=== PATIENT | female | born 1990 | race Caucasian/White ===

== ENCOUNTER 2017-02-25 03:14 | Emergency (ER) | payer OTHER ==
[2017-02-25 03:15] VITALS: BP 127/79; PULSE 93; RESP 18; TEMP 98.6; O2SAT 98
[2017-02-25] MEDS ORDERED: SODIUM CHLOR 0.9% 1000 ML INJ 1,000 ML IV ONE (03:30)
[2017-02-25] MEDS ORDERED: DIPHTH/TETANUS/ACEL PERTUSSIS (BOOSTER) 0.5 ML VIAL/PFS IM ONE (03:30)
[2017-02-25 03:37] VITALS: PULSE 93; RESP 16; O2SAT 98
[2017-02-25 03:54] LABS: AUTOMATED NEUTROPHIL # 9.2 TH/MM3 (1.8-7.7); BASOPHIL % 0.4 % (0.0-2.0); EOSINOPHIL # 0.1 TH/MM3 (0-0.4); EOSINOPHIL % 1.1 % (0.0-4.0); HEMATOCRIT 34.5 % (35.0-46.0); HEMO FLAGS DIFF FINAL; LYMPH % 15.6 % (9.0-44.0); LYMPHOCYTE # 1.8 TH/MM3 (1.0-4.8); MEAN CELL VOLUME 86.1 FL (80.0-100.0); MEAN CORPUSCULAR HEMOGLOBIN 28.5 PG (27.0-34.0); MEAN CORPUSCULAR HGB CONC 33.1 % (32.0-36.0); MONO % 5.1 % (0.0-8.0); NEUT % 77.8 % (16.0-70.0); PLATELET COUNT 234 TH/MM3 (150-450); RED CELL DISTRIBUTION WIDTH 12.5 % (11.6-17.2); WHITE BLOOD COUNT 11.8 TH/MM3 (4.0-11.0)
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
[2017-02-25 04:07] LABS: APTT (PATIENT) 34.3 SEC (24.3-30.1); INTERNATIONAL NORMALIZED RATIO 1.1 RATIO; PROTHROMBIN TIME - PATIENT 12.1 SEC (9.8-11.6)
[2017-02-25 04:09] LABS: ALT (GPT) 18 U/L (10-53); ANION GAP 9 MEQ/L (5-15); AST (GOT) 22 U/L (15-37); BICARBONATE 22.9 MEQ/L (21.0-32.0); BLOOD UREA NITROGEN 12 MG/DL (7-18); CHLORIDE 110 MEQ/L (98-107); GLOMERULAR FILTRATION RATE 130 ML/MIN (>89); POTASSIUM 3.2 MEQ/L (3.5-5.1); SODIUM (NA) 142 MEQ/L (136-145)
--- NOTE | 2017-02-25 04:11 | PD ---
HPI Chief Complaint: Injury Time Seen by Provider: 03:22 Travel History International Travel<30 days: No Contact w/Intl Traveler<30days: No Traveled to known affect area: No PFSH Past Medical History Asthma: Yes Immunizations Current: No ?: Not Past Surgical History Section: Yes Social History Alcohol Use: No Tobacco Use: No Substance Use: No Allergies-Medications (Allergen,Severity, Reaction): Coded Allergies: Penicillin (Verified Allergy, Unknown, 02/25/17) Reported Meds & Prescriptions Reported Meds & Active Scripts Active No Active Prescriptions or Reported Medications Data Data Last Documented VS Vital Signs Date Time Temp Pulse Resp B/P Pulse Ox O2 Delivery O2 Flow Rate FiO2 02/25/17 03:37 93 16 98 Room Air 02/25/17 03:15 98.6 127/[address] Brain W/O Iv Contrast(Rout) (02/25/17 03:23) Ct Cerv Spine W/O Contrast (02/25/17 03:23) Complete Blood Count With Diff (02/25/17 03:23) Comprehensive Metabolic Panel (02/25/17 03:23) Prothrombin Time / Inr (Pt) (02/25/17 03:23) Act Partial Throm Time (Ptt) (02/25/17 03:23) Lipase (02/25/17 03:23) Urinalysis - C+S If Indicated (02/25/17 03:23) Chest, Pa & Lat (02/25/17 03:23) Iv Access Insert/Monitor (02/25/17 03:23) Ecg Monitoring (02/25/17 03:23) Oximetry (02/25/17 03:23) Ed Urine Pregnancytest Poc (02/25/17 03:23) Shgt-Xiv-Styftq (Booster) Inj (Boostrix (02/25/17 03:30) Sodium Chlor 0.9% 1000 Ml Inj (Ns 1000 M (02/25/17 03:30) Shoulder, Complete (>2vws) (02/25/17 03:23) Ice/Cold Pack (02/25/17 03:23) Labs Laboratory Tests Test 02/25/17 03:30 White Blood Count 11.8 TH/MM3 Red Blood Count 4.00 MIL/MM3 Hemoglobin 11.4 GM/DL Hematocrit 34.5 % Mean Corpuscular Volume 86.1 FL Mean Corpuscular Hemoglobin 28.5 PG Mean Corpuscular Hemoglobin 33.1 % Concent Red Cell Distribution Width 12.5 % Platelet Count 234 TH/MM3 Mean Platelet Volume 8.4 FL Neutrophils (%) (Auto) 77.8 % Lymphocytes (%) (Auto) 15.6 % Monocytes (%) (Auto) 5.1 % Eosinophils (%) (Auto) 1.1 % Basophils (%) (Auto) 0.4 % Neutrophils # (Auto) 9.2 TH/MM3 Lymphocytes # (Auto) 1.8 TH/MM3 Monocytes # (Auto) 0.6 TH/MM3 Eosinophils # (Auto) 0.1 TH/MM3 Basophils # (Auto) 0.0 TH/MM3 CBC Comment DIFF FINAL Differential Comment Prothrombin Time 12.1 SEC Prothromb Time International 1.1 RATIO Ratio Activated Partial 34.3 SEC Thromboplast Time Sodium Level 142 MEQ/L Potassium Level 3.2 MEQ/L Chloride Level 110 MEQ/L Carbon Dioxide Level 22.9 MEQ/L Anion Gap 9 MEQ/L Blood Urea Nitrogen 12 MG/DL Creatinine 0.57 MG/DL Estimat Glomerular Filtration 130 ML/MIN Rate Random Glucose 107 MG/DL Calcium Level 7.9 MG/DL Total Bilirubin 0.5 MG/DL Aspartate Amino Transf 22 U/L (AST/SGOT) Alanine Aminotransferase 18 U/L (ALT/SGPT) Alkaline Phosphatase 80 U/L Total Protein 7.2 GM/DL Albumin 3.6 GM/DL Lipase 118 U/L MDM Medical Decision Making Narrative Course During the course of the patients emergency department visit, the patients history, examination, and differential diagnosis were reviewed with the patient. The patient had IV access obtained and blood work sent for analysis. The patient was placed on a playground monitor with oximetry and blood pressure monitoring. A chest x-ray was ordered, left shoulder x-ray was ordered. CT scan of the head and neck was ordered. The patient was initially provided an update of her tetanus, normal saline 1 L IV fluid bolus. The patients laboratory studies were reviewed and remarkable for white count of 11.8, hemoglobin 11.4, platelets 234 with neutrophils 77.8, Radiology studies were reviewed and remarkable for a left shoulder x-ray that shows no acute abnormality. A chest x-ray shows no acute abnormality. The patient is resting comfortably and feels better, is alert and in no distress. The patients results and examination findings were discussed with the patient. The repeat examination is unremarkable and benign. The history, exam, diagnostic testing, and current condition do not suggest any significant pathology to warrant further testing, continued ED treatment, admission, or surgical evaluation at this point. The vital signs have been stable. The patient does not have uncontrollable pain, intractable vomiting, or other significant symptoms. The patient's condition is stable and appropriate for discharge. The patient will pursue further outpatient evaluation with a primary care physician or other designated or consulting physician as indicated in the discharge instructions. The patient expressed understanding and was agreeable with this plan. Scripts No Active Prescriptions or Reported Meds Kayleigh Gonzalez MD February 25, 2017 04:11
[2017-02-25 04:12] LABS: ALKALINE PHOSPHATASE 80 U/L (45-117); TOTAL BILIRUBIN ADULT 0.5 MG/DL (0.2-1.0)
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
[2017-02-25] MEDS ORDERED: NAPR1TAB34 PO (05:34)
[2017-02-25] MEDS ORDERED: CYCL5TAB PO (05:34)
[2017-02-25] MEDS ORDERED: POTASSIUM CHLORIDE 20 MEQ CONTROLLED RELEASE TAB PO ONE (05:45)
[2017-02-25] MEDS ORDERED: ACETAMINOPHEN/HYDROcodone 325 MG/5 MG TAB PO ONE (05:45)
[2017-02-25 06:50] VITALS: BP 109/64; PULSE 83; RESP 16; O2SAT 100
== END 2017-02-25 07:48 | disposition home or self-care (01) ==
LOC: NEPC 03:14
DX: M25.512 Pain in left shoulder (principal); S09.90XA Unspecified injury of head, initial encounter; M54.2 Cervicalgia; Z23 Encounter for immunization; Z86.2 Personal history of diseases of the blood and blood-forming organs and certain disorders involving the immune mechanism; Z87.09 Personal history of other diseases of the respiratory system; Y04.8XXA Assault by other bodily force, initial encounter
CPT/HCPCS: 70450; 71020; 72125; 73030; 80053; 83690; 85025; 85610; 85730; 90471; 90715; 96360; 99284; J7030

== ENCOUNTER 2017-04-02 08:39 | Emergency (ER) | payer MEDICAID ==
[~2017-04-02] VITALS: Ht 154.9 cm; Wt 53.6 kg
[~2017-04-02 08:39] MED LIST: CYCL5TAB PO; NAPR1TAB34 PO
[2017-04-02 08:45] VITALS: BP 98/57; PULSE 68; RESP 16; TEMP 98.3; O2SAT 100
[2017-04-02] MEDS ORDERED: ONDANSETRON ODT 4 MG TAB PO ONE (09:00)
--- NOTE | 2017-04-02 09:02 | PD ---
HPI Chief Complaint: GI Complaint Time Seen by Provider: 08:49 Travel History International Travel<30 days: No Contact w/Intl Traveler<30days: No Traveled to known affect area: No History of Present Illness HPI This 27-year-old female says she's been vomiting since last night. He says there is no chance of . She says that last night she woke up around 2: 00 and vomited 3 times. She morning she has vomited twice. Diarrhea. His stomach is not hurting. She does have a history of anxiety and anxiety related chest pain. She has not had chest pain today PFSH Past Medical History Hx Anticoagulant Therapy: No Asthma: Yes Diabetes: No Immunizations Current: No Tetanus Vaccination: < 5 Years Influenza Vaccination: No ?: Not LMP: 1 week ago Past Surgical History Section: Yes Tympanostomy Tube: Yes Social History Alcohol Use: No Tobacco Use: No Substance Use: No Allergies-Medications (Allergen,Severity, Reaction): Coded Allergies: Penicillin (Verified Allergy, Severe, Throat swelling , 04/02/17) Reported Meds & Prescriptions Reported Meds & Active Scripts Active Zofran Odt (Ondansetron Odt) 4 Mg Tab 4 Mg SL Q6HR PRN Review of Systems General / Constitutional: Positive: Chills, No: Fever Eyes: No: Diploplia, Blurred Vision HENT: No: Headaches Cardiovascular: No: Chest Pain or Discomfort, Palpitations Respiratory: No: Cough, Shortness of Breath Gastrointestinal: Positive: Nausea, Vomiting, No: Diarrhea, Abdominal Pain Genitourinary: No: Frequency Musculoskeletal: No: Myalgias, Arthralgias Skin: No Rash, No Itching Neurologic: No: Weakness Endocrine: No: Heat Intolerance, Cold Intolerance Hematologic/Lymphatic: No: Easy Bruising Physical Exam Narrative GENERAL: Well-developed female SKIN: Focused skin assessment warm/dry. HEAD: Atraumatic. Normocephalic. EYES: Pupils equal and round. No scleral icterus. No injection or drainage. ENT: No nasal bleeding or discharge. Mucous membranes pink and moist. NECK: Trachea midline. No JVD. CARDIOVASCULAR: Regular rate and rhythm. No murmur appreciated. RESPIRATORY: No accessory muscle use. Clear to auscultation. Breath sounds equal bilaterally. GASTROINTESTINAL: Abdomen soft, non-tender, nondistended. Hepatic and splenic margins not palpable. MUSCULOSKELETAL: No obvious deformities. No clubbing. No cyanosis. No edema. NEUROLOGICAL: Awake and alert. No obvious cranial nerve deficits. Motor grossly within normal limits. Normal speech. PSYCHIATRIC: Appropriate mood and affect; insight and judgment normal. Data Data Last Documented VS Vital Signs Date Time Temp Pulse Resp B/P Pulse Ox O2 Delivery O2 Flow Rate FiO2 04/02/17 08:45 98.3 68 16 98/57 100 Orders Ondansetron Odt (Zofran Odt) (04/02/17 09:00) [facility] Medical Decision Making Medical Screen Exam Complete: Yes Emergency Medical Condition: Yes Medical Record Reviewed: Yes Differential Diagnosis Differential includes viral illness, gastroenteritis, dehydration Narrative Course Patient was given oral Zofran. After this she was able to tolerate a fluid challenge. She'll be released with prescription for Zofran. This is most likely viral gastritis Diagnosis Primary Impression: Acute gastritis Qualified Code: K29.00 - Acute gastritis without hemorrhage, unspecified gastritis type Scripts Ondansetron Odt (Zofran Odt)4 Mg Tab4 Mg SL Q6HR PRN (Nausea/Vomiting) #10 TAB Ref 0 Prov:Srikanth Manuel MD 04/02/17 Disposition: 01 DISCHARGE HOME Condition: Stable Srikanth Manuel MD Apr 02, 2017 09:02
[2017-04-02] MEDS ORDERED: ZOFR4TAB3 SL (09:38)
[2017-04-02 10:20] VITALS: BP 99/74; PULSE 73; RESP 16; O2SAT 98
== END 2017-04-02 10:20 | disposition home or self-care (01) ==
LOC: PHED 08:39
DX: K29.00 Acute gastritis without bleeding (principal); Z88.0 Allergy status to penicillin
CPT/HCPCS: 99283

== ENCOUNTER 2017-05-28 19:59 | Emergency (ER) | payer MEDICAID ==
[2017-05-28] VITALS (7 sets, daily range): BP systolic 95–107; BP diastolic 57–69; PULSE 103–120; RESP 16–18; TEMP 98.9–99.5; O2SAT 96–98
[~2017-05-28] VITALS: Ht 180.3 cm; Wt 51.6 kg
[~2017-05-28 19:59] MED LIST changes: -CYCL5TAB PO; -NAPR1TAB34 PO; +ZOFR4TAB3 SL
[2017-05-28] MEDS ORDERED: SODIUM CHLOR 0.9% 1000 ML INJ 1,000 ML IV SCH (20:28)
[2017-05-28] MEDS ORDERED: ONDANSETRON HCL 4 MG/2 ML VIAL IVP ONE (20:30)
[2017-05-28] MEDS ORDERED: KETOROLAC TROMETHAMINE 30 MG/ML (IVP) VIAL IVP ONE (20:30)
[2017-05-28] MEDS ORDERED: SODIUM CHLORIDE 0.9% FLUSH 10 ML FLUSH IV FLUSH PRN (20:30)
[2017-05-28] MEDS ORDERED: PAXI10TA2 PO (20:35)
[2017-05-28 20:51] LABS: GLUCOSE,URINE NEG (NEG); KETONE, URINE NEG (NEG); PH, URINE 7.5 (5.0-8.5)
--- NOTE | 2017-05-28 20:51 | PD ---
HPI Chief Complaint: Cold / Flu Symptoms Time Seen by Provider: 20:23 Travel History International Travel<30 days: No Contact w/Intl Traveler<30days: No Traveled to known affect area: No History of Present Illness HPI Patient is a 27-year-old female presents emergency Department with bodyaches chills and subjective fever for the past 2 days. Patient states it hurts particularly on the right side of her back. Denies any dysuria denies any vaginal bleeding vaginal discharge. States she's had some mild nausea without any specific abdominal pain. No chest pain or cough. His symptoms began gradually worsening moderate severity. No radiation of her pain. PFSH Past Medical History Hx Anticoagulant Therapy: No ADD: Yes Asthma: Yes Bipolar Disorder: Yes Anxiety: Yes Depression: Yes Diabetes: No Diminished Hearing: No Immunizations Current: No Tetanus Vaccination: < 5 Years Influenza Vaccination: No ?: Not LMP: Three weeks ago Past Surgical History Section: Yes Tympanostomy Tube: Yes Social History Alcohol Use: No Tobacco Use: No Substance Use: No Allergies-Medications (Allergen,Severity, Reaction): Coded Allergies: Penicillin (Verified Allergy, Severe, Throat swelling , 05/28/17) Reported Meds & Prescriptions Reported Meds & Active Scripts Active Zofran Odt (Ondansetron Odt) 4 Mg Tab 4 Mg SL Q6HR PRN Keflex (Cephalexin) 500 Mg Cap 500 Mg PO Q6H 10 Days Reported Paxil (Paroxetine HCl) 10 Mg Tab 10 Mg PO DAILY Review of Systems Except as stated in HPI: all other systems reviewed are Neg Physical Exam Narrative GENERAL: Well-developed, well-nourished, appears uncomfortable but nontoxic. SKIN: Focused skin assessment warm/dry. HEAD: Atraumatic. Normocephalic. EYES: Pupils equal and round. No scleral icterus. No injection or drainage. ENT: No nasal bleeding or discharge. Mucous membranes pink and moist. NECK: Trachea midline. No JVD. CARDIOVASCULAR: Regular rate and rhythm. No murmur appreciated. RESPIRATORY: No accessory muscle use. Clear to auscultation. Breath sounds equal bilaterally. GASTROINTESTINAL: Abdomen soft, non-tender, nondistended. Hepatic and splenic margins not palpable. Moderate right-sided CVA tenderness. No rebound no percussive tenderness. MUSCULOSKELETAL: No obvious deformities. No clubbing. No cyanosis. No edema. NEUROLOGICAL: Awake and alert. No obvious cranial nerve deficits. Motor grossly within normal limits. Normal speech. PSYCHIATRIC: Appropriate mood and affect; insight and judgment normal. Data Data Last Documented VS Vital Signs Date Time Temp Pulse Resp B/P Pulse Ox O2 Delivery O2 Flow Rate FiO2 05/28/17 23:00 99.4 103 18 97/61 98 Room Air Orders Complete Blood Count With Diff (05/28/17 20:28) Comprehensive Metabolic Panel (05/28/17 20:28) Lipase (05/28/17 20:28) Urinalysis - C+S If Indicated (05/28/17 20:28) Iv Access Insert/Monitor (05/28/17 20:28) Ecg Monitoring (05/28/17 20:28) Oximetry (05/28/17 20:28) Ondansetron Inj (Zofran Inj) (05/28/17 20:30) Sodium Chlor 0.9% 1000 Ml Inj (Ns 1000 M (05/28/17 20:28) Sodium Chloride 0.9% Flush (Ns Flush) (05/28/17 20:30) Ketorolac Inj (Toradol Inj) (05/28/17 20:30) Ed Urine Pregnancytest Poc (05/28/17 20:28) Urine Culture (05/28/17 20:35) Lactic Acid (05/28/17 21:03) Sodium Chlor 0.9% 1000 Ml Inj (Ns 1000 M (05/28/17 21:15) Blood Culture (05/28/17 21:03) Ciprofloxacin 400 Mg Premix (Cipro 400 M (05/28/17 21:15) Labs Laboratory Tests Test 05/28/17 05/28/17 05/28/17 20:35 20:45 21:15 Urine Color YELLOW Urine Turbidity CLOUDY Urine pH 7.5 Urine Specific [place] 1.012 Urine Protein 100 mg/dL Urine Glucose (UA) NEG mg/dL Urine Ketones NEG mg/dL Urine Occult Blood MOD Urine Nitrite POS Urine Bilirubin NEG Urine Leukocyte Esterase LARGE Urine RBC 5-10 /hpf Urine WBC 100-200 /hpf Urine Squamous Epithelial 6-8 /hpf Cells Urine Bacteria MANY /hpf Microscopic Urinalysis Comment CULTURE INDICATED White Blood Count 12.9 TH/MM3 Red Blood Count 4.29 MIL/MM3 Hemoglobin 12.5 GM/DL Hematocrit 37.1 % Mean Corpuscular Volume 86.6 FL Mean Corpuscular Hemoglobin 29.2 PG Mean Corpuscular Hemoglobin 33.7 % Concent Red Cell Distribution Width 12.3 % Platelet Count 263 TH/MM3 Mean Platelet Volume 7.9 FL Neutrophils (%) (Auto) 89.0 % Lymphocytes (%) (Auto) 4.7 % Monocytes (%) (Auto) 5.6 % Eosinophils (%) (Auto) 0.0 % Basophils (%) (Auto) 0.7 % Neutrophils # (Auto) 11.5 TH/MM3 Lymphocytes # (Auto) 0.6 TH/MM3 Monocytes # (Auto) 0.7 TH/MM3 Eosinophils # (Auto) 0.0 TH/MM3 Basophils # (Auto) 0.1 TH/MM3 CBC Comment DIFF FINAL Differential Comment Sodium Level 137 MEQ/L Potassium Level 3.6 MEQ/L Chloride Level 105 MEQ/L Carbon Dioxide Level 24.7 MEQ/L Anion Gap 7 MEQ/L Blood Urea Nitrogen 9 MG/DL Creatinine 0.76 MG/DL Estimat Glomerular Filtration 93 ML/MIN Rate Random Glucose 114 MG/DL Calcium Level 8.7 MG/DL Total Bilirubin 0.7 MG/DL Aspartate Amino Transf 14 U/L (AST/SGOT) Alanine Aminotransferase 16 U/L (ALT/SGPT) Alkaline Phosphatase 81 U/L Total Protein 8.0 GM/DL Albumin 3.7 GM/DL Lipase 124 U/L Lactic Acid Level 1.0 mmol/L MDM Medical Decision Making Medical Screen Exam Complete: Yes Emergency Medical Condition: Yes Differential Diagnosis Pyelonephritis, sepsis, UTI, influenza, dehydration. Narrative Course Patient roomed in the emergency department, initially appearing somewhat uncomfortable she was given pain medicine and nausea medicine in 2 L normal saline. Initial lactic is 1. She does have a minimal elevation of white blood cell count to just over 12,000. Mildly tachycardic. This does technically meet Sirs criteria. The patient was given Rocephin IV after blood cultures were drawn. Her UA does show nitrite positive and leukocyte esterase positive urine confirming the diagnosis of pyelonephritis. After 2 L of fluid the patient is feeling much better. I discussed the concerns with her that her white blood cell count is significantly elevated, her tachycardia is mostly resolved and is 90-100 at time of discharge. She is both stating that she feels much better and she appears to have improved in the emergency department as well. Asked again with her the concerns over technical sepsis diagnosis and she should consider admission to the hospital. At this time the patient would like to go home and take her antibiotics and return to ED if not feeling better. I think this is a reasonable course of action given her clinical improvement in the emergency department. Discussed strict return to ED criteria including fever worsening abdominal pain inability to tolerate by mouth medications and feeling poorly. She verbalized understanding and agreement. Diagnosis Primary Impression: Pyelonephritis Med/Other Pt SpecificInfo: Prescription(s) given Scripts Ondansetron Odt (Zofran Odt)4 Mg Tab4 Mg SL Q6HR PRN (Nausea/Vomiting) #20 TAB Ref 0 Prov:Chang Zarco MD 05/28/17 Cephalexin (Keflex)500 Mg [id number] Mg PO Q6H 10 Days Ref 0 Prov:Chang Zarco MD 05/28/17 Disposition: 01 DISCHARGE HOME Condition: Stable Chang Zarco MD May 28, 2017 20:51
[2017-05-28 20:53] LABS: AUTOMATED NEUTROPHIL # 11.5 TH/MM3 (1.8-7.7); BASOPHIL # 0.1 TH/MM3 (0-0.2); BASOPHIL % 0.7 % (0.0-2.0); HEMATOCRIT 37.1 % (35.0-46.0); HEMO FLAGS DIFF FINAL; LYMPH % 4.7 % (9.0-44.0); LYMPHOCYTE # 0.6 TH/MM3 (1.0-4.8); MEAN CELL VOLUME 86.6 FL (80.0-100.0); MEAN CORPUSCULAR HEMOGLOBIN 29.2 PG (27.0-34.0); MEAN CORPUSCULAR HGB CONC 33.7 % (32.0-36.0); MONO % 5.6 % (0.0-8.0); PLATELET COUNT 263 TH/MM3 (150-450); RED BLOOD COUNT 4.29 MIL/MM3 (4.00-5.30); RED CELL DISTRIBUTION WIDTH 12.3 % (11.6-17.2); WHITE BLOOD COUNT 12.9 TH/MM3 (4.0-11.0)
[2017-05-28 20:57] LABS: BLOOD, URINE MOD (NEG); NITRITE,URINE POS (NEG); URINE COLOR YELLOW (YELLW/STRAW)
[2017-05-28 20:58] LABS: BACTERIA, URINE MANY /hpf; COMMENT (UR) CULTURE INDICATED; CULTURE IF INDICATED CULTURE INDICATED; WBC, URINE 100-200 /hpf (0-5)
[2017-05-28 21:01] LABS: CHLORIDE 105 MEQ/L (98-107); POTASSIUM 3.6 MEQ/L (3.5-5.1); SODIUM (NA) 137 MEQ/L (136-145)
[2017-05-28 21:05] LABS: ANION GAP 7 MEQ/L (5-15); BICARBONATE 24.7 MEQ/L (21.0-32.0); BLOOD UREA NITROGEN 9 MG/DL (7-18)
[2017-05-28 21:08] LABS: ALT (GPT) 16 U/L (10-53); AST (GOT) 14 U/L (15-37); GLOMERULAR FILTRATION RATE 93 ML/MIN (>89)
[2017-05-28 21:09] LABS: TOTAL BILIRUBIN ADULT 0.7 MG/DL (0.2-1.0)
[2017-05-28 21:11] LABS: ALKALINE PHOSPHATASE 81 U/L (45-117)
[2017-05-28] MEDS ORDERED: CIPROFLOXACIN 400 MG PREMIX 200 ML IV ONE (21:15)
[2017-05-28] MEDS ORDERED: SODIUM CHLOR 0.9% 1000 ML INJ 1,000 ML IV ONE (21:15)
[2017-05-28] MEDS ORDERED: CEPH-460 PO (23:06)
[2017-05-28] MEDS ORDERED: ZOFR4TAB3 SL (23:06)
== END 2017-05-28 23:29 | disposition home or self-care (01) ==
LOC: PHED 19:59
DX: N12 Tubulo-interstitial nephritis, not specified as acute or chronic (principal); B96.20 Unspecified Escherichia coli [E. coli] as the cause of diseases classified elsewhere
CPT/HCPCS: 80053; 81001; 83605; 83690; 84703; 85025; 87040; 87077; 87086; 87186; 96361; 96365; 96375; 99284; J0744; J1885; J2405; J7030

== ENCOUNTER 2017-06-30 12:13 | Emergency (ER) | payer MEDICAID, OTHER ==
[~2017-06-30] VITALS: Ht 157.5 cm; Wt 55.0 kg
[~2017-06-30 12:13] MED LIST changes: +CEPH-460 PO; +PAXI10TA2 PO
[2017-06-30 12:24] VITALS: BP 104/71; PULSE 98; RESP 21; TEMP 98.4; O2SAT 97
[2017-06-30 12:32] VITALS: BP 104/71; PULSE 99; RESP 21; TEMP 98.4; O2SAT 97
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
[2017-06-30 13:35] LABS: AUTOMATED NEUTROPHIL # 4.9 TH/MM3 (1.8-7.7); BASOPHIL % 0.6 % (0.0-2.0); EOSINOPHIL # 0.1 TH/MM3 (0-0.4); EOSINOPHIL % 1.3 % (0.0-4.0); HEMATOCRIT 37.8 % (35.0-46.0); HEMO FLAGS DIFF FINAL; LYMPHOCYTE # 1.7 TH/MM3 (1.0-4.8); MEAN CELL VOLUME 86.8 FL (80.0-100.0); MEAN CORPUSCULAR HEMOGLOBIN 28.9 PG (27.0-34.0); MEAN CORPUSCULAR HGB CONC 33.3 % (32.0-36.0); MONO % 3.9 % (0.0-8.0); NEUT % 70.2 % (16.0-70.0); PLATELET COUNT 252 TH/MM3 (150-450); RED BLOOD COUNT 4.35 MIL/MM3 (4.00-5.30); RED CELL DISTRIBUTION WIDTH 13.7 % (11.6-17.2)
[2017-06-30 13:51] LABS: BACTERIA, URINE FEW /hpf; BLOOD, URINE NEG (NEG); COMMENT (UR) CULTURE INDICATED; CULTURE IF INDICATED CULTURE INDICATED; GLUCOSE,URINE NEG (NEG); KETONE, URINE TRACE mg/dL (NEG); MUCUS URINE FEW /lpf (OCC); NITRITE,URINE NEG (NEG); SQUAMOUS EPITHELIAL CELL URINE 39 /hpf (0-5); URINE COLOR YELLOW (YELLW/STRAW)
[2017-06-30] MEDS ORDERED: BACT800T5 PO (13:59)
[2017-06-30 14:00] LABS: ANION GAP 9 MEQ/L (5-15); AST (GOT) 14 U/L (15-37); BICARBONATE 23.5 MEQ/L (21.0-32.0); BLOOD UREA NITROGEN 8 MG/DL (7-18); CHLORIDE 106 MEQ/L (98-107); GLOMERULAR FILTRATION RATE 115 ML/MIN (>89); POTASSIUM 3.6 MEQ/L (3.5-5.1); SODIUM (NA) 138 MEQ/L (136-145)
[2017-06-30 14:01] LABS: ALT (GPT) 18 U/L (10-53)
[2017-06-30 14:03] LABS: ALKALINE PHOSPHATASE 92 U/L (45-117); TOTAL BILIRUBIN ADULT 0.6 MG/DL (0.2-1.0)
[2017-06-30 14:05] LABS: ALCOHOL LESS THAN 3 MG/DL (0-5)
[2017-06-30] MEDS: SULFAMETHOXAZOLE-TRIMETHOPRIM DS 800-160 MG TAB PO SCH ×2 (14:36→21:00)
[2017-06-30 14:43] VITALS: BP 111/63
[2017-06-30 15:39] VITALS: BP 110/56; PULSE 86; RESP 18; TEMP 100
[2017-06-30 18:31] VITALS: BP 108/63; PULSE 80; RESP 18; O2SAT 99
[2017-06-30 23:14] VITALS: BP 104/60; PULSE 83; RESP 18; O2SAT 98
[2017-07-01 02:11] VITALS: BP 96/50; PULSE 77; RESP 18; O2SAT 99
[2017-07-01 06:20] VITALS: BP 101/58; PULSE 79; RESP 18; O2SAT 98
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
[2017-07-01] MEDS ORDERED: PAXI10TA2 PO (09:39)
--- NOTE | 2017-07-01 09:43 | PD ---
Physical Exam Time Seen by Provider: 09:41 RICHELLE Mancuso has evaluated the patient and lifted the Colby act and will be discharging the patient home. Data Data Last Documented VS Vital Signs Date Time Temp Pulse Resp B/P (MAP) Pulse Ox O2 Delivery O2 Flow Rate FiO2 07/01/17 06:20 79 18 101/58 (72) 98 Room Air 06/30/17 15:39 100.0 Orders Orders Complete Blood Count With Diff (06/30/17 12:32) Comprehensive Metabolic Panel (06/30/17 12:32) Urinalysis - C+S If Indicated (06/30/17 12:32) Ed Urine Pregnancytest Poc (06/30/17 12:32) Psych Screen (06/30/17 12:32) Drug Screen, Random Urine (06/30/17 12:32) Alcohol (Ethanol) (06/30/17 12:32) Urine Culture (06/30/17 13:00) Sulfamet-Trimeth Ds 800-160 Mg (Bactrim (06/30/17 14:00) Diet Regular Basic (06/30/17 Dinner) Diet Regular Basic (07/01/17 Breakfast) Labs Laboratory Tests Test 06/30/17 13:00 White Blood Count 7.0 TH/MM3 Red Blood Count 4.35 MIL/MM3 Hemoglobin 12.6 GM/DL Hematocrit 37.8 % Mean Corpuscular Volume 86.8 FL Mean Corpuscular Hemoglobin 28.9 PG Mean Corpuscular Hemoglobin Concent 33.3 % Red Cell Distribution Width 13.7 % Platelet Count 252 TH/MM3 Mean Platelet Volume 8.0 FL Neutrophils (%) (Auto) 70.2 % Lymphocytes (%) (Auto) 24.0 % Monocytes (%) (Auto) 3.9 % Eosinophils (%) (Auto) 1.3 % Basophils (%) (Auto) 0.6 % Neutrophils # (Auto) 4.9 TH/MM3 Lymphocytes # (Auto) 1.7 TH/MM3 Monocytes # (Auto) 0.3 TH/MM3 Eosinophils # (Auto) 0.1 TH/MM3 Basophils # (Auto) 0.0 TH/MM3 CBC Comment DIFF FINAL Differential Comment Urine Color YELLOW Urine Turbidity CLOUDY Urine pH 6.0 Urine Specific Armstrong 1.018 Urine Protein TRACE mg/dL Urine Glucose (UA) NEG mg/dL Urine Ketones TRACE mg/dL Urine Occult Blood NEG Urine Nitrite NEG Urine Bilirubin NEG Urine Urobilinogen LESS THAN 2.0 MG/DL Urine Leukocyte Esterase LARGE Urine RBC 3 /hpf Urine WBC 10 /hpf Urine Squamous Epithelial Cells 39 /hpf Urine Amorphous Sediment OCC Urine Bacteria FEW /hpf Urine Mucus FEW /lpf Microscopic Urinalysis Comment CULTURE INDICATED Blood Urea Nitrogen 8 MG/DL Creatinine 0.63 MG/DL Random Glucose 91 MG/DL Total Protein 7.9 GM/DL Albumin 4.1 GM/DL Calcium Level 8.5 MG/DL Alkaline Phosphatase 92 U/L Aspartate Amino Transf (AST/SGOT) 14 U/L Alanine Aminotransferase (ALT/SGPT) 18 U/L Total Bilirubin 0.6 MG/DL Sodium Level 138 MEQ/L Potassium Level 3.6 MEQ/L Chloride Level 106 MEQ/L Carbon Dioxide Level 23.5 MEQ/L Anion Gap 9 MEQ/L Estimat Glomerular Filtration Rate 115 ML/MIN Urine Opiates Screen NEG Urine Barbiturates Screen NEG Urine Amphetamines Screen NEG Urine Benzodiazepines Screen NEG Urine Cocaine Screen NEG Urine Cannabinoids Screen NEG Ethyl Alcohol Level LESS THAN 3 MG/DL MDM Supervised Visit with JOYCE: No Narrative Course RICHELLE Obregon has evaluated the patient and lifted the Colby act and will be discharging the patient home. Mindi is providing the patient with prescription for Paxil for home. The patient contracts for safety and denies suicidal or homicidal ideations at this time. The patient has a follow-up appointment with her therapist tomorrow and will follow up outpatient. Patient has family and friends for support. She is being given a perception for Bactrim for home for UTI. Patient is medically stable for discharge. Diagnosis Primary Impression: Adjustment disorder Additional Impression: Urinary tract infection Qualified Codes: N30.01 - Acute cystitis with hematuria Referrals: Primary Care Physician Psychiatrist [facility] Patient Instructions: General Instructions, Mood Disorders (ED), Urinary Tract Infection in Women (ED) Additional Instruction: Contract safety to your self and others Follow-up with psychiatry Follow-up with primary care provider Follow-up with Horace Gonzalez Return to the emergency department immediately with worsening of symptoms Take antibiotics as prescribed and complete full course Drink plenty of fluids Maintain good personal hygiene Follow-up with primary care provider Return to the emergency department immediately with worsening of symptoms Med/Other Pt SpecificInfo: Prescription(s) given Scripts Paroxetine (Paxil) 10 Mg Tab 20 MG PO DAILY for depression, #30 TAB 0 Refills Prov: Mindi Malcolm 07/01/17 Sulfamethoxazole-Trimethoprim (Bactrim DS) 800-160 Mg Tab 1 TAB PO BID for Infection, #14 TAB 0 Refills Prov: Favian Leon MD 06/30/17 Disposition: 01 DISCHARGE HOME Condition: Stable Dinorah Lam Jul 01, 2017 09:43
[2017-07-01] MEDS: SULFAMETHOXAZOLE-TRIMETHOPRIM DS 800-160 MG TAB PO SCH (09:51)
[2017-07-01 10:00] VITALS: BP 101/58; PULSE 79; RESP 18; O2SAT 98
== END 2017-07-01 11:47 | disposition home or self-care (01) ==
LOC: NEPD 12:13 → NEPJ 07-01 11:47
DX: F43.20 Adjustment disorder, unspecified (principal); N39.0 Urinary tract infection, site not specified; J45.909 Unspecified asthma, uncomplicated; F31.9 Bipolar disorder, unspecified; F43.10 Post-traumatic stress disorder, unspecified; Z79.899 Other long term (current) drug therapy; Z88.0 Allergy status to penicillin
CPT/HCPCS: 80053; 80307; 81001; 84703; 85025; 87086; 99284

== ENCOUNTER 2017-10-30 19:20 | Emergency (ER) | payer OTHER ==
[~2017-10-30] VITALS: Ht 154.9 cm; Wt 55.1 kg
[~2017-10-30 19:20] MED LIST changes: +BACT800T5 PO; -PAXI10TA2 PO; +PAXI10TA8 PO
[2017-10-30 19:24] VITALS: BP 127/77; PULSE 76; RESP 16; TEMP 97.2; O2SAT 100
--- NOTE | 2017-10-30 19:41 | PD ---
HPI Chief Complaint: Musculoskeletal Complaint Time Seen by Provider: 19:38 Travel History International Travel<30 days: No Contact w/Intl Traveler<30days: No Traveled to known affect area: No History of Present Illness HPI 27 YO right hand dominant F presents to the ED for evaluation of left wrist and thumb pain. Rated 10/10, constant with a shooting quality. Exacerbated by certain motions. Gradual onset yesterday. She endorses numbness and tingling of the thumb. Pain is on the radial side of the wrist and radiates into the arm. She denies weakness or limitations to range of motion of the extremity. 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 She treated with a heat pack with no improvement of symptoms. PFSH Past Medical History Hx Anticoagulant Therapy: No ADD: Yes Asthma: Yes Bipolar Disorder: Yes Anxiety: Yes Depression: Yes Diabetes: No Diminished Hearing: No Psychiatric: Yes (PTSD) Respiratory: Yes Immunizations Current: No Tetanus Vaccination: < 5 Years Influenza Vaccination: No ?: Unknown LMP: 4 WEEKS AGO Past Surgical History Section: Yes Tonsillectomy: Yes Tympanostomy Tube: Yes Social History Alcohol Use: No Tobacco Use: No Substance Use: No (denies) Allergies-Medications (Allergen,Severity, Reaction): Coded Allergies: penicillin G (Unverified Allergy, Severe, Throat swelling , 10/30/17) Reported Meds & Prescriptions Reported Meds & Active Scripts Active Ibuprofen 800 Mg Tab 800 Mg PO Q8HR Paxil (Paroxetine HCl) 10 Mg Tab 20 Mg PO DAILY Bactrim DS (Sulfamethoxazole-Trimethoprim) 800-160 Mg Tab 1 Tab PO BID Zofran Odt (Ondansetron Odt) 4 Mg Tab 4 Mg SL Q6HR PRN Keflex (Cephalexin) 500 Mg Cap 500 Mg PO Q6H 10 Days Reported Paxil (Paroxetine HCl) 10 Mg Tab 10 Mg PO DAILY Review of Systems Except as stated in HPI: all other systems reviewed are Neg Physical Exam Narrative GENERAL: Well-nourished, well-developed female in no acute distress. SKIN: Focused skin assessment warm/dry. HEAD: Normocephalic. EYES: No scleral icterus. No injection or drainage. NECK: Supple, trachea midline. No JVD or lymphadenopathy. CARDIOVASCULAR: Regular rate and rhythm without murmurs, gallops, or rubs. RESPIRATORY: Breath sounds equal bilaterally. No accessory muscle use. GASTROINTESTINAL: Abdomen soft, non-tender, nondistended. MUSCULOSKELETAL: No cyanosis, or edema. FOCUSED LEFT UPPER EXTREMITY EXAM: 2+ radial pulse. Mild edema and point tenderness over the radial styloid. Jagruti's test positive. Patient is able to flex and extend the digits of the hand. Pronation and supination of the wrist elicits pain. Neurovascularly intact distally. BACK: Nontender without obvious deformity. No CVA tenderness. Data Data Last Documented VS Vital Signs Date Time Temp Pulse Resp B/P (MAP) Pulse Ox O2 Delivery O2 Flow Rate FiO2 10/30/17 19:24 97.2 76 16 127/77 (94) 100 Orders Orders Ketorolac Inj (Toradol Inj) (10/30/17 20:00) Ed Discharge Order (10/30/17 20:03) MDM Medical Decision Making Medical Screen Exam Complete: Yes Emergency Medical Condition: Yes Differential Diagnosis Tendinitis versus de Quervain's tenosynovitis versus extensor carpi ulnaris tendinopathy versus carpal tunnel versus other Narrative Course 27 YO right hand dominant F presents to the ED for evaluation of left wrist and thumb pain. Gradual onset yesterday. She endorses numbness and tingling of the thumb. Pain located on the radial side of the wrist and radiates into the arm. She denies weakness or limitations to range of motion of the extremity. 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 Vitals reviewed. Signs , symptoms, physical exam classic for de Quervain's tenosynovitis. Patient was administered IM Toradol. She is prescribed a short course of anti-inflammatory medications, instructed to buy an OTC thumb spica, rest, ice, elevate the extremity, follow up with the hand surgeon if it becomes do not improve. She indicated understanding of instructions and is agreeable care plan. She stable and discharged home. Diagnosis Primary Impression: De Quervain's tenosynovitis, left Referrals: Hand Surgeon Primary Care Physician Patient Instructions: General Instructions, Tenosynovitis (ED) Additional Instructions: Rest, ice, elevate the extremity. Apply ice no longer than 10-15 minutes per hour a few times a day. 800 mg ibuprofen up to 3 times a day as needed for pain. Purchase a thumb spica, available [id number] to support the inflamed tendon. Wear the thumb spica as needed for support. Ultimately rest will resolve your symptoms. Follow-up with the hand surgeon or primary care provider if symptoms do not resolve in 2 weeks. Return to the ED for any urgent or emergent medical condition. Med/Other Pt SpecificInfo: Prescription(s) given Scripts Ibuprofen (Ibuprofen) 800 Mg Tab 800 MG PO Q8HR, #15 TAB 0 Refills Prov: Amanuel Julian MD 10/30/17 Disposition: 01 DISCHARGE HOME Condition: Stable Lenora Barrow Oct 30, 2017 19:41
[2017-10-30] MEDS ORDERED: KETOROLAC TROMETHAMINE 60 MG/2 ML (IM) VIAL IM ONE (20:00)
[2017-10-30] MEDS ORDERED: IBUP1TAB7 PO (20:02)
== END 2017-10-30 20:16 | disposition home or self-care (01) ==
LOC: PHEFT 19:20
DX: M65.4 Radial styloid tenosynovitis [de Quervain] (principal); F98.8 Other specified behavioral and emotional disorders with onset usually occurring in childhood and adolescence; J45.909 Unspecified asthma, uncomplicated; F31.9 Bipolar disorder, unspecified; F32.9 Major depressive disorder, single episode, unspecified; F43.10 Post-traumatic stress disorder, unspecified; Z79.899 Other long term (current) drug therapy; Z88.0 Allergy status to penicillin
CPT/HCPCS: 96372; 99284; J1885

== ENCOUNTER 2018-02-02 12:54 | Emergency (ER) | payer SELFPAY ==
[~2018-02-02] VITALS: Ht 154.9 cm; Wt 61.0 kg
[~2018-02-02 12:54] MED LIST changes: +IBUP1TAB7 PO
[2018-02-02 12:58] VITALS: BP 115/80; PULSE 73; RESP 18; TEMP 97.6; O2SAT 99
[2018-02-02 13:29] VITALS: O2SAT 98
[2018-02-02] MEDS ORDERED: RESP: ALBUTEROL 2.5 MG/IPRATROPIUM 0.5 MG NEB (SCH) INH ONE (13:30)
[2018-02-02] MEDS ORDERED: KETOROLAC TROMETHAMINE 30 MG/ML (IVP) VIAL IV PUSH ONE (13:30)
[2018-02-02] MEDS ORDERED: SODIUM CHLORIDE 0.9% FLUSH 10 ML FLUSH IVF PRN (13:30)
[2018-02-02 13:38] VITALS: BP_SYST 102; BP_SYST 106; BP_DIAS 61; BP_DIAS 63
[2018-02-02 13:38] LABS: AUTOMATED NEUTROPHIL # 5.1 TH/MM3 (1.8-7.7); BASOPHIL % 0.6 % (0.0-2.0); EOSINOPHIL # 0.1 TH/MM3 (0-0.4); EOSINOPHIL % 1.7 % (0.0-4.0); HEMATOCRIT 37.1 % (35.0-46.0); HEMOGLOBIN 12.1 GM/DL (11.6-15.3); LYMPH % 29.8 % (9.0-44.0); LYMPHOCYTE # 2.4 TH/MM3 (1.0-4.8); MEAN CORPUSCULAR HGB CONC 32.5 % (32.0-36.0); MEAN PLATELET VOLUME 7.1 FL (7.0-11.0); MONO % 5.8 % (0.0-8.0); MONOCYTE # 0.5 TH/MM3 (0-0.9); NEUT % 62.1 % (16.0-70.0); PLATELET COUNT 300 TH/MM3 (150-450); RED BLOOD COUNT 4.31 MIL/MM3 (4.00-5.30); RED CELL DISTRIBUTION WIDTH 12.4 % (11.6-17.2); WHITE BLOOD COUNT 8.1 TH/MM3 (4.0-11.0)
--- NOTE | 2018-02-02 13:41 | RADRPT ---
EXAM DATE/TIME: 02/02/2018 13:23 [facility] COMPARISON: CHEST PA & LAT, February 25, 2017, 3:37. INDICATIONS : Chest pain for one week. MEDICAL HISTORY : None. SURGICAL HISTORY : None. ENCOUNTER: Initial ACUITY: 1 day PAIN SCORE: 6/10 LOCATION: Bilateral chest FINDINGS: Portable AP view of the chest demonstrates a normal-sized cardiac silhouette. No effusion, consolidat ion, or pneumothorax is identified. The bones and soft tissues demonstrate no acute finding. EKG line s overlie the patient. CONCLUSION: No acute cardiopulmonary abnormality is identified. Arturo Beatty MD on February 02, 2018 at 13:37 Board Certified Radiologist. This report was verified electronically.
[2018-02-02 13:47] LABS: CHLORIDE 105 MEQ/L (98-107); SODIUM (NA) 138 MEQ/L (136-145)
[2018-02-02 13:49] LABS: CALCIUM 8.7 MG/DL (8.5-10.1)
[2018-02-02 13:50] LABS: BICARBONATE 27.4 MEQ/L (21.0-32.0); BLOOD UREA NITROGEN 9 MG/DL (7-18); GLUCOSE,RANDOM 108 MG/DL (74-106); MAGNESIUM 1.9 MG/DL (1.5-2.5)
[2018-02-02 13:53] LABS: CREATININE 0.66 MG/DL (0.50-1.00); GLOMERULAR FILTRATION RATE 109 ML/MIN (>89)
[2018-02-02 13:58] LABS: TROPONIN I LESS THAN 0.02 NG/ML (0.02-0.05)
[2018-02-02] MEDS ORDERED: IBUP1TAB5 PO (14:10)
--- NOTE | 2018-02-02 14:11 | PD ---
HPI Chief Complaint: Chest Pain Time Seen by Provider: 13:21 Travel History International Travel<30 days: No Contact w/Intl Traveler<30days: No Traveled to known affect area: No History of Present Illness HPI 27-year-old female complains of chest pain retrosternal left and right anterior chest for the past week. She reports anxiety has felt similar in the past however does not last as long. She reports significant personal stress and stress related with work lately. She reports insomnia due to the chest pain as well as shortness of breath. She reports a pleuritic component to the chest pain. There is a cough. She denies fever. She does not smoke tobacco. Patient has a history of asthma however has not had benefit from using her inhaler. PFSH Past Medical History Hx Anticoagulant Therapy: No ADD: Yes Asthma: Yes Bipolar Disorder: Yes Anxiety: Yes Depression: Yes Diabetes: No Diminished Hearing: No Psychiatric: Yes (PTSD) Respiratory: Yes Immunizations Current: No Tetanus Vaccination: < 5 Years Influenza Vaccination: No ?: Not LMP: 01/19/2018 Past Surgical History Section: Yes Tonsillectomy: Yes Tympanostomy Tube: Yes Social History Alcohol Use: No Tobacco Use: No Substance Use: No (denies) Allergies-Medications (Allergen,Severity, Reaction): Coded Allergies: penicillin G (Unverified Allergy, Severe, Throat swelling , 02/02/18) Reported Meds & Prescriptions Reported Meds & Active Scripts Active Ibuprofen 400 Mg Tab 400 Mg PO Q8H 5 Days Review of Systems Except as stated in HPI: all other systems reviewed are Neg General / Constitutional: No: Fever Physical Exam Narrative GENERAL: 27-year-old female pleasant well-nourished well-developed Vital Signs Date Time Temp Pulse Resp B/P (MAP) Pulse Ox O2 Delivery O2 Flow Rate FiO2 02/02/18 13:38 102/63 (76) 106/61 (76) 02/02/18 13:29 98 Room Air 02/02/18 13:29 98 Room Air 02/02/18 13:12 77 Room Air 02/02/18 12:58 97.6 73 18 115/80 (92) 99 SKIN: Warm and dry. HEAD: Atraumatic. Normocephalic. EYES: Pupils equal and round. No scleral icterus. No injection or drainage. ENT: No nasal bleeding or discharge. Mucous membranes pink and moist. NECK: Trachea midline. No JVD. CARDIOVASCULAR: Regular rate and rhythm. RESPIRATORY: No accessory muscle use. Clear to auscultation. Breath sounds equal bilaterally. GASTROINTESTINAL: Abdomen soft, non-tender, nondistended. Hepatic and splenic margins not palpable. MUSCULOSKELETAL: Extremities without clubbing, cyanosis, or edema. No obvious deformities. NEUROLOGICAL: Awake and alert. No obvious cranial nerve deficits. Motor grossly within normal limits. Five out of 5 muscle strength in the arms and legs. Normal speech. PSYCHIATRIC: Appropriate mood and affect; insight and judgment normal. Data Data Last Documented VS Vital Signs Date Time Temp Pulse Resp B/P (MAP) Pulse Ox O2 Delivery O2 Flow Rate FiO2 02/02/18 14:16 97 16 106/59 (75) 98 Room Air 02/02/18 12:58 97.6 Orders Orders Electrocardiogram (02/02/18 13:21) Basic Metabolic Panel (Bmp) (02/02/18 13:21) Complete Blood Count With Diff (02/02/18 13:21) D-Dimer (02/02/18 13:21) Magnesium (Mg) (02/02/18 13:21) Troponin I (02/02/18 13:21) Chest, Single Ap (02/02/18 13:21) Ecg Monitoring (02/02/18 13:21) Bilateral Bp Monitoring (02/02/18 13:21) Iv Access Insert/Monitor (02/02/18 13:21) Oximetry (02/02/18 13:21) Oxygen Administration (02/02/18 13:21) Sodium Chloride 0.9% Flush (Ns Flush) (02/02/18 13:30) Ketorolac Inj (Toradol Inj) (02/02/18 13:30) Albuterol-Ipratropium Neb (Duoneb Neb) (02/02/18 13:30) Ed Discharge Order (02/02/18 14:13) Labs Laboratory Tests Test 02/02/18 13:30 White Blood Count 8.1 TH/MM3 Red Blood Count 4.31 MIL/MM3 Hemoglobin 12.1 GM/DL Hematocrit 37.1 % Mean Corpuscular Volume 86.0 FL Mean Corpuscular Hemoglobin 28.0 PG Mean Corpuscular Hemoglobin Concent 32.5 % Red Cell Distribution Width 12.4 % Platelet Count 300 TH/MM3 Mean Platelet Volume 7.1 FL Neutrophils (%) (Auto) 62.1 % Lymphocytes (%) (Auto) 29.8 % Monocytes (%) (Auto) 5.8 % Eosinophils (%) (Auto) 1.7 % Basophils (%) (Auto) 0.6 % Neutrophils # (Auto) 5.1 TH/MM3 Lymphocytes # (Auto) 2.4 TH/MM3 Monocytes # (Auto) 0.5 TH/MM3 Eosinophils # (Auto) 0.1 TH/MM3 Basophils # (Auto) 0.0 TH/MM3 CBC Comment DIFF FINAL Differential Comment D-Dimer Quantitative (PE/DVT) 0.44 MG/L FEU Blood Urea Nitrogen 9 MG/DL Creatinine 0.66 MG/DL Random Glucose 108 MG/DL Calcium Level 8.7 MG/DL Magnesium Level 1.9 MG/DL Sodium Level 138 MEQ/L Potassium Level 3.3 MEQ/L Chloride Level 105 MEQ/L Carbon Dioxide Level 27.4 MEQ/L Anion Gap 6 MEQ/L Estimat Glomerular Filtration Rate 109 ML/MIN Troponin I LESS THAN 0.02 NG/ML MDM Medical Decision Making Medical Screen Exam Complete: Yes Emergency Medical Condition: Yes Medical Record Reviewed: Yes Differential Diagnosis NSTEMI, unstable angina, coronary vasospasm, PE, PTX, aortic dissection, pericarditis, myocarditis, endocarditis, PNA, esophageal disease, aneurysm, musculoskeletal etiologies, anxiety, cocaine/sympathomimetic abuse Narrative Course CBC & BMP Diagram 02/02/18 13:30 Calcium Level 8.7, Magnesium Level 1.9 EKG shows sinus rhythm with a rate of 74, nonspecific ST changes different leads Chest x-ray shows no acute cardiopulmonary disease Overall presentation is considered most in keeping with pleurisy or musculoskeletal related pain. The patient is resting comfortably and feels better, is alert and in no distress. The patients results and examination findings were discussed. The repeat examination is unremarkable and benign. The history, exam, diagnostic testing, and current condition do not suggest any significant pathology to warrant further testing, continued ED treatment, admission, or surgical evaluation at this point. The vital signs have been stable. The patient does not have uncontrollable pain, intractable vomiting, or other significant symptoms. The patient's condition is stable and appropriate for discharge. The patient will pursue further outpatient evaluation with a primary care physician or other designated or consulting physician as indicated in the discharge instructions. The patient expressed understanding and was agreeable with this plan. Diagnosis Primary Impression: Chest pain Qualified Codes: R07.9 - Chest pain, unspecified Additional Impressions: Insomnia Qualified Codes: G47.00 - Insomnia, unspecified Anxiety Referrals: Primary Care Physician 2 days Med/Other Pt SpecificInfo: Prescription(s) given Scripts Ibuprofen (Ibuprofen) 400 Mg Tab 400 MG PO Q8H for 5 Days, #15 TAB 0 Refills Prov: Thomas Earl MD 02/02/18 Disposition: DISCHARGE HOME Condition: Stable Thomas Earl MD Feb 02, 2018 14:11
[2018-02-02 14:16] VITALS: BP 106/59; PULSE 97; RESP 16; O2SAT 98
--- NOTE | 2018-02-03 21:37 | EKG ---
Date Performed: 02/02/2018 Time Performed: 13:53:38 PTAGE: 27 years EKG: Sinus rhythm POSSIBLE LEFT ATRIAL ENLARGEMENT POSSIBLE RIGHT VENTRICULAR CONDUCTION DELAY MODERATE ST DEPRESSION ABNORMAL ECG NO PREVIOUS TRACING DOCTOR: Wenceslao Whalen Interpretating Date/Time 02/03/2018 21:35:11
== END 2018-02-02 14:36 | disposition home or self-care (01) ==
LOC: PHED 12:54
DX: R07.9 Chest pain, unspecified (principal); G47.00 Insomnia, unspecified; R94.31 Abnormal electrocardiogram [ECG] [EKG]; R06.02 Shortness of breath; J45.909 Unspecified asthma, uncomplicated; F41.8 Other specified anxiety disorders; F43.10 Post-traumatic stress disorder, unspecified; Z88.0 Allergy status to penicillin
CPT/HCPCS: 71045; 80048; 83735; 84484; 85025; 85379; 93005; 94664; 96374; 99285; J1885

== ENCOUNTER 2018-02-24 11:37 | Emergency (ER) | payer MEDICAID ==
[~2018-02-24] VITALS: Ht 154.9 cm; Wt 60.0 kg
[~2018-02-24 11:37] MED LIST changes: -BACT800T5 PO; -CEPH-460 PO; +IBUP1TAB5 PO; -IBUP1TAB7 PO; -PAXI10TA8 PO; -ZOFR4TAB3 SL
[2018-02-24 11:45] VITALS: BP 116/59; PULSE 74; RESP 16; TEMP 97.6; O2SAT 99
--- NOTE | 2018-02-24 12:58 | RADRPT ---
EXAM DATE/TIME: 02/24/2018 12:36 [facility] COMPARISON: No previous studies available for comparison. INDICATIONS : Fell off bed, left shoulder pain. MEDICAL HISTORY : None. SURGICAL HISTORY : None. ENCOUNTER: Initial ACUITY: 1 day PAIN SCORE: 10/10 LOCATION: Left shoulder FINDINGS: Two view examination of the left shoulder demonstrates no evidence of fracture or dislocation. The g lenohumeral and acromioclavicular joints are maintained. Bony mineralization is normal. CONCLUSION: Negative trauma study. Waqar Gonzales MD on February 24, 2018 at 12:57 Board Certified Radiologist. This report was verified electronically.
--- NOTE | 2018-02-24 12:58 | RADRPT ---
EXAM DATE/TIME: 02/24/2018 12:36 [facility] COMPARISON: No previous studies available for comparison. INDICATIONS : Fell off bed, left wrist pain. MEDICAL HISTORY : None. SURGICAL HISTORY : None. ENCOUNTER: Initial ACUITY: 1 day PAIN SCORE: 3/10 LOCATION: Left wrist FINDINGS: A limited 2 view examination of the left wrist demonstrates no soft tissue swelling, dislocation, or fracture. The joint spaces are maintained. Bony mineralization is normal. CONCLUSION: Negative limited 2 view trauma study. Waqar Gonzales MD on February 24, 2018 at 12:56 Board Certified Radiologist. This report was verified electronically.
--- NOTE | 2018-02-24 12:59 | RADRPT ---
EXAM DATE/TIME: 02/24/2018 12:36 [facility] COMPARISON: No previous studies available for comparison. INDICATIONS : Fell off bed, left elbow pain. MEDICAL HISTORY : None. SURGICAL HISTORY : None. ENCOUNTER: Initial ACUITY: 1 day PAIN SCORE: 3/10 LOCATION: Left elbow FINDINGS: Limited AP and lateral views of the elbow were obtained and not a standard 4 view trauma study which limits the sensitivity of the exam. There is no visualized fracture. The soft tissues appear unremark able. The radial head is intact. CONCLUSION: Negative limited study. Waqar Gonzales MD on February 24, 2018 at 12:57 Board Certified Radiologist. This report was verified electronically.
[2018-02-24] MEDS ORDERED: IBUP-232 PO (13:07)
--- NOTE | 2018-02-24 13:07 | PD ---
HPI Chief Complaint: Musculoskeletal Complaint Time Seen by Provider: 12:46 Travel History International Travel<30 days: No Contact w/Intl Traveler<30days: No Traveled to known affect area: No History of Present Illness HPI 27-year-old female 5 bed this morning and landed on her left arm and unusual position creating a loud sound a sudden onset pain. The patient has a constant severe pain now. It's worse with palpation and range of motion. No numbness tingling or weakness. No loss of consciousness. PFSH Past Medical History Hx Anticoagulant Therapy: No ADD: Yes Asthma: Yes Bipolar Disorder: Yes Anxiety: Yes Depression: Yes Diabetes: No Diminished Hearing: No Psychiatric: Yes (PTSD) Respiratory: Yes Immunizations Current: No Influenza Vaccination: No ?: Not Past Surgical History Section: Yes Tonsillectomy: Yes Tympanostomy Tube: Yes Social History Alcohol Use: No Tobacco Use: No Substance Use: No (denies) Allergies-Medications (Allergen,Severity, Reaction): Coded Allergies: penicillin G (Unverified Allergy, Severe, Throat swelling , 02/24/18) Reported Meds & Prescriptions Reported Meds & Active Scripts Active Ibuprofen 400 Mg Tab 400 Mg PO Q8H 5 Days Review of Systems General / Constitutional: No: Fever Eyes: No: Photophobia Cardiovascular: No: Irregular Rhythm Respiratory: No: Shortness of Breath Physical Exam Narrative GENERAL: 27-year-old female pleasant well-nourished well-developed mild distress secondary to pain and/or anxiety Vital Signs Date Time Temp Pulse Resp B/P (MAP) Pulse Ox O2 Delivery O2 Flow Rate FiO2 02/24/18 11:45 97.6 74 16 116/59 (78) 99 SKIN: Warm and dry. HEAD: Normocephalic. EYES: No scleral icterus. No injection or drainage. RESPIRATORY: Breath sounds equal bilaterally. No accessory muscle use. GASTROINTESTINAL: Abdomen soft, non-tender, nondistended. MUSCULOSKELETAL: There is 2+ radial artery pulse bilaterally. There is an intact hand financial institution manager bilaterally. There is tenderness to light touch from the region of the acromion on the left side to the DRUJ. There is no gross deformity or ecchymosis or objective evidence of trauma aside from the tenderness. BACK: Nontender without obvious deformity. No CVA tenderness. Data Data Last Documented VS Vital Signs Date Time Temp Pulse Resp B/P (MAP) Pulse Ox O2 Delivery O2 Flow Rate FiO2 02/24/18 11:45 97.6 74 16 116/59 (78) 99 Orders Orders Wrist, Limited (Ap&Lat) (02/24/18 ) Shoulder, Limited(2vws) (02/24/18 ) Elbow, Limited (Ap&Lat) (02/24/18 ) Ed Urine Pregnancytest Poc (02/24/18 12:18) MDM Medical Decision Making Medical Screen Exam Complete: Yes Emergency Medical Condition: Yes Medical Record Reviewed: Yes Differential Diagnosis Fracture, dislocation, contusion, sprain Narrative Course X-ray shoulder reveals no acute traumatic injury X-ray the elbow reveals no acute traumatic injury X-ray of the wrist reveals no acute medical injury The patient will receive Motrin and immobilization appliances. There is no indication for opioid therapy which may or may not be in keeping the patient's expectations. Diagnosis Primary Impression: Accidental fall from bed Qualified Codes: W06.XXXA - Fall from bed, initial encounter Additional Impression: Musculoskeletal pain of left upper extremity Referrals: Frederick Bui MD call for appointment Med/Other Pt SpecificInfo: Prescription(s) given Scripts Ibuprofen (Ibuprofen) 600 Mg Tab 600 MG PO Q8H Y for PAIN SCALE 6 TO 10, #20 TAB 0 Refills Prov: Thomas Earl MD 02/24/18 Disposition: 01 DISCHARGE HOME Condition: Stable Thomas Earl MD February 24, 2018 13:07
[2018-02-24] MEDS ORDERED: KETOROLAC TROMETHAMINE 60 MG/2 ML (IM) VIAL IM ONE (13:15)
== END 2018-02-24 13:40 | disposition home or self-care (01) ==
LOC: PHEFT 11:37
DX: M79.602 Pain in left arm (principal); W06.XXXA Fall from bed, initial encounter; J45.909 Unspecified asthma, uncomplicated; F31.9 Bipolar disorder, unspecified; F43.10 Post-traumatic stress disorder, unspecified; F41.9 Anxiety disorder, unspecified
CPT/HCPCS: 73030; 73070; 73100; 84703; 96372; 99284; J1885